=== PATIENT | female | born 1985 | race Hispanic/Latino ===

== ENCOUNTER 2023-03-26 03:06 | Inpatient (IN) | payer OTHER ==
[~2023-03-26] VITALS: Ht 149.9 cm; Wt 54.5 kg
[2023-03-26] MEDS ORDERED: ACETAMINOPHEN 500 MG TABLET PO ONE (03:30)
[2023-03-26 03:40] LABS: BASOPHILS % (AUTO) 0.2 % (0.0-5.0); HEMATOCRIT 29.2 % (36-48); MEAN CORPUSCULAR HEMOGLOBIN 21.2 pg (27.0-33.0); MEAN CORPUSCULAR HGB CONC 30.1 g/dL (32.0-36.0); MEAN CORPUSCULAR VOLUME 70.2 fL (79-99); MONOCYTES % (AUTO) 2.4 % (3.0-13.0); PLATELET COUNT (AUTO) 298 K/uL (130-400); RED BLOOD CELL COUNT(AUTO) 4.16 MIL/uL (4.00-5.50); RED CELL DISTRIBUTION WIDTH 17.4 % (11.0-15.5); WHITE BLOOD COUNT (AUTO) 11.3 K/uL (4.8-10.8)
[2023-03-26 03:41] LABS: APPEARANCE,URINE CLEAR (CLEAR); BILIRUBIN,URINE NEGATIVE (NEGATIVE); COLOR,URINE LIGHT-YELLOW (YELLOW); GLUCOSE, URINE (UA) 70 mg/dL (NEGATIVE); KETONES,URINE NEGATIVE (NEGATIVE); LEUKOCYTE ESTERASE ,URINE NEGATIVE Leu/uL (NEGATIVE); NITRATE,URINE NEGATIVE (NEGATIVE); OCCULT BLOOD,URINE SMALL (NEGATIVE); PH,URINE 5.5 (5.0-8.0); PROTEIN,URINE NEGATIVE (NEGATIVE); UROBILINOGEN,URINE 0.2 mg/dL (0.2-1.0)
[2023-03-26 03:47] LABS: RBC,URINE 0-1 /HPF (0-1); SQUAMOUS EPITHELIAL CELL,UR RARE /HPF (0-2); WBC,URINE 0-1 /HPF (0-1)
[2023-03-26 03:49] LABS: CREATININE 0.7 mg/dL (0.5-1.5)
[2023-03-26 03:53] LABS: ALBUMIN 3.6 g/dL (3.5-5.0); TOTAL PROTEIN, SERUM 8.2 g/dL (6.0-8.3)
[2023-03-26] MEDS ORDERED: LACTATED RINGERS 1000ML 1,000 ML IV ONE (03:55)
[2023-03-26] MEDS ORDERED: POTASSIUM BICARB/CIT AC 25 MEQ TABLET.EFF PO ONE (04:00)
[2023-03-26] MEDS ORDERED: ONDANSETRON 4MG INJ IVP ONE (04:00)
[2023-03-26] MEDS ORDERED: LACTATED RINGERS 1000ML IV SCH ×2 (04:00→06:00)
[2023-03-26] MEDS ORDERED: METRONIDAZOLE 500 MG TABLET PO SCH (04:30)
[2023-03-26] MEDS ORDERED: LEVOFLOXACIN 750 MG/D5W 150ML BAG IV ONE (04:30)
[2023-03-26] MEDS ORDERED: ONDANSETRON 4MG INJ IVP PRN (07:30)
[2023-03-26] MEDS: LEVOFLOXACIN 500 MG/D5W 100 ML 100 ML IV SCH (07:30)
[2023-03-26] MEDS ORDERED: POTASSIUM CHLORIDE 20MEQ/100ML 100 ML IV PRN (07:30)
[2023-03-26] MEDS ORDERED: MAGNESIUM 2GM PREMIX 50ML 50 ML IV PRN (07:30)
[2023-03-26] MEDS: FAMOTIDINE 20MG VIAL IV SCH ×2 (08:14→20:56)
[2023-03-26] MEDS: LACTATED RINGERS 1000ML 1,000 ML IV SCH ×2 (08:14→20:50)
[2023-03-26 09:33] LABS: CRP QUANTITATIVE 48.6 mg/L (0.00-9.0); MAGNESIUM 1.6 mg/dL (1.80-2.40)
[2023-03-26 11:39] VITALS: BP 96/56
[2023-03-26 16:15] VITALS: BP 98/56
[2023-03-26] MEDS: METRONIDAZOLE 500MG/100ML BAG 100 ML IVPB SCH ×2 (17:35→21:03)
[2023-03-26 19:39] VITALS: BP 100/56
[2023-03-26 23:03] VITALS: BP 94/59
[2023-03-27 03:59] VITALS: BP 102/57
[2023-03-27] MEDS: METRONIDAZOLE 500MG/100ML BAG 100 ML IVPB SCH ×3 (05:05→21:20)
[2023-03-27 08:00] VITALS: BP 100/57
[2023-03-27] MEDS: FAMOTIDINE 20MG VIAL IV SCH ×2 (08:29→20:54)
[2023-03-27] MEDS: LEVOFLOXACIN 500 MG/D5W 100 ML 100 ML IV SCH (08:29)
[2023-03-27 09:32] LABS: BASOPHILS % (AUTO) 0.7 % (0.0-5.0); EOSINOPHILS % (AUTO) 0.6 % (0.0-8.0); HEMATOCRIT 27.1 % (36-48); LYMPHOCYTES % (AUTO) 11.2 % (21.0-51.0); MEAN CORPUSCULAR HEMOGLOBIN 21.1 pg (27.0-33.0); MEAN CORPUSCULAR HGB CONC 28.8 g/dL (32.0-36.0); MEAN CORPUSCULAR VOLUME 73.4 fL (79-99); MONOCYTES % (AUTO) 6.5 % (3.0-13.0); NEUTROPHILS % (AUTO) 80.7 % (40.0-77.0); PLATELET COUNT (AUTO) 275 K/uL (130-400); RED BLOOD CELL COUNT(AUTO) 3.69 MIL/uL (4.00-5.50); RED CELL DISTRIBUTION WIDTH 17.9 % (11.0-15.5); WHITE BLOOD COUNT (AUTO) 8.7 K/uL (4.8-10.8)
[2023-03-27 10:03] LABS: ALBUMIN 2.8 g/dL (3.5-5.0); CREATININE 0.7 mg/dL (0.5-1.5); TOTAL PROTEIN, SERUM 6.7 g/dL (6.0-8.3)
[2023-03-27] MEDS: LACTATED RINGERS 1000ML 1,000 ML IV SCH ×2 (10:10→20:54)
[2023-03-27] MEDS ORDERED: KCL 20 MEQ ERTAB PO ONE (10:48)
[2023-03-27] MEDS ORDERED: POTASSIUM CHLORIDE 10% ELIXIR 20 MEQ/15 ML UDCUP PO PRN (11:00)
[2023-03-27 11:33] VITALS: BP 108/63
[2023-03-27] MEDS: KCL 20 MEQ ERTAB PO PRN ×4 (14:11→21:20)
[2023-03-27 16:00] VITALS: BP 109/62
[2023-03-27 17:43] LABS: POTASSIUM 3.4 mmol/L (3.5-5.1)
[2023-03-27 19:01] VITALS: BP 101/64
[2023-03-27 22:58] VITALS: BP 108/58
[2023-03-28 03:30] VITALS: BP 90/54
[2023-03-28] MEDS: METRONIDAZOLE 500MG/100ML BAG 100 ML IVPB SCH (05:16)
[2023-03-28] MEDS: LEVOFLOXACIN 500 MG/D5W 100 ML 100 ML IV SCH (06:43)
[2023-03-28 08:01] VITALS: BP 92/58
[2023-03-28 08:22] LABS: BASOPHILS % (AUTO) 0.6 % (0.0-5.0); EOSINOPHILS % (AUTO) 1.3 % (0.0-8.0); HEMATOCRIT 25.4 % (36-48); LYMPHOCYTES % (AUTO) 33.8 % (21.0-51.0); MEAN CORPUSCULAR HEMOGLOBIN 21.2 pg (27.0-33.0); MEAN CORPUSCULAR HGB CONC 29.1 g/dL (32.0-36.0); MEAN CORPUSCULAR VOLUME 72.8 fL (79-99); MONOCYTES % (AUTO) 10.8 % (3.0-13.0); NEUTROPHILS % (AUTO) 53.3 % (40.0-77.0); PLATELET COUNT (AUTO) 275 K/uL (130-400); RED BLOOD CELL COUNT(AUTO) 3.49 MIL/uL (4.00-5.50); RED CELL DISTRIBUTION WIDTH 18.4 % (11.0-15.5); WHITE BLOOD COUNT (AUTO) 5.3 K/uL (4.8-10.8)
[2023-03-28 08:33] LABS: ALBUMIN 2.8 g/dL (3.5-5.0); CREATININE 0.6 mg/dL (0.5-1.5); MAGNESIUM 1.9 mg/dL (1.80-2.40); POTASSIUM 4.1 mmol/L (3.5-5.1); TOTAL PROTEIN, SERUM 6.8 g/dL (6.0-8.3)
[2023-03-28] MEDS: FAMOTIDINE 20MG VIAL IV SCH (08:37)
[2023-03-28] MEDS ORDERED: LACT1TAB26 PO (09:47)
[2023-03-28] MEDS ORDERED: METR-172 PO (09:47)
== END 2023-03-28 11:00 | disposition home or self-care (01) | DRG 871 ==
LOC: EDH 03:06 → EDHIP 03:07 → 4BH 11:31
PROVIDERS: ADMIT Hospitalist; ATTEND Hospitalist
DX: A41.9 Sepsis, unspecified organism (principal); I21.A1 Myocardial infarction type 2; A04.9 Bacterial intestinal infection, unspecified; E87.1 Hypo-osmolality and hyponatremia; Z20.822 Contact with and (suspected) exposure to COVID-19; E86.1 Hypovolemia; E03.9 Hypothyroidism, unspecified; E87.6 Hypokalemia; D64.9 Anemia, unspecified
CPT/HCPCS: 36415; 80053; 81001; 81025; 82550; 83605; 83690; 83735; 83874; 84132; 84145; 84484; 85025; 86140; 87040; 87046; 87177; 87324; 87635; 87804; 87880; 93005; C9803; G0378; J1956; J2405; J3475; J3480; J3490; J7120